=== PATIENT | female | born 1940 | race Caucasian/White ===

== ENCOUNTER → 2024-09-14 06:26 | Outpatient (ROUT) | payer MEDICARE, SELFPAY ==
[2024-09-14 09:00] LABS: INR 1.8 (0.9-1.3); Prothrombin Time 19.6 SECONDS (9.4-12.5)
== END ==
PROVIDERS: Visit Provider Registered Nurse
DX: I27.20 Pulmonary hypertension, unspecified (principal); I10 Essential (primary) hypertension
CPT/HCPCS: 36415; 85610

== ENCOUNTER → 2024-09-21 06:19 | Outpatient (ROUT) | payer MEDICARE, SELFPAY ==
[2024-09-21 08:18] LABS: Add Manual Diff / Slide Review NO; Basophils Absolute Auto 0 /uL (0-100); Basophils Percent Auto 0.5 % (0-2); Eosinophils Absolute Auto 200 /uL (0-450); Eosinophils Percent Auto 1.7 % (2-4); Hematocrit 33.1 % (36-46); Hemoglobin 11.1 g/dL (12.0-16.0); Lymphocytes Absolute Auto 1800 /uL (1100-4500); Mean Corpuscular HGB Conc 33.5 % (30-36); Mean Corpuscular Hemoglobin 28.8 PG (26-34); Mean Corpuscular Volume 85.9 fL (80-100); Monocytes Absolute Auto 700 /uL (0-900); Monocytes Percent Auto 7.8 % (3-14); Neutrophils Absolute Auto 6200 /uL (1500-7000); Platelet Count 604 X10^3/uL (150-400); Red Blood Cell Count 3.86 X10^6/uL (4.0-5.2); Red Cell Distribution Width 14.7 % (11.6-14.8); White Blood Cell Count 8.9 X10^3/uL (4.5-11.0)
[2024-09-21 08:33] LABS: INR 1.8 (0.9-1.3); Prothrombin Time 19.9 SECONDS (9.4-12.5)
[2024-09-21 08:39] LABS: BUN Creatinine Ratio 26.9 (6-22); Blood Urea Nitrogen 14 mg/dL (7-17); Carbon Dioxide 33 mmol/L (22-32); Chloride 95 mmol/L (98-107); Estimated Glomerular Filt Rate > 60 mL/min (>60); Glucose 105 mg/dL (80-110); HEMOLYSIS < 15 (0-50); Magnesium 1.6 mg/dL (1.6-2.3); Potassium 3.2 mmol/L (3.4-5.1); Sodium 135 mmol/L (137-145)
== END ==
PROVIDERS: Visit Provider Registered Nurse
DX: I11.0 Hypertensive heart disease with heart failure (principal); I50.9 Heart failure, unspecified; I48.91 Unspecified atrial fibrillation; D64.9 Anemia, unspecified
CPT/HCPCS: 36415; 80048; 83735; 85025; 85610

== ENCOUNTER → 2024-09-28 06:16 | Outpatient (ROUT) | payer MEDICARE, SELFPAY ==
[2024-09-28 08:06] LABS: INR 1.9 (0.9-1.3); Prothrombin Time 21.3 SECONDS (9.4-12.5)
[2024-09-28 08:12] LABS: Alanine Aminotransferase 20 IU/L (<35); Albumin 3.1 g/dL (3.5-5.0); Alkaline Phosphatase 62 U/L (38-126); Aspartate Aminotransferase 27 IU/L (14-36); BUN Creatinine Ratio 25.9 (6-22); Bilirubin Total 0.4 mg/dL (0.2-1.3); Blood Urea Nitrogen 14 mg/dL (7-17); Carbon Dioxide 31 mmol/L (22-32); Chloride 100 mmol/L (98-107); Estimated Glomerular Filt Rate > 60 mL/min (>60); Globulin 3.1 g/dL (1.7-4.1); Glucose 107 mg/dL (80-110); HEMOLYSIS < 15 (0-50); Magnesium 1.6 mg/dL (1.6-2.3); Potassium 3.2 mmol/L (3.4-5.1); Sodium 135 mmol/L (137-145); Total Protein 6.2 g/dL (6.3-8.2)
== END ==
PROVIDERS: Visit Provider Registered Nurse
DX: I11.0 Hypertensive heart disease with heart failure (principal); I50.9 Heart failure, unspecified; I48.91 Unspecified atrial fibrillation; D64.9 Anemia, unspecified; E87.6 Hypokalemia
CPT/HCPCS: 36415; 80053; 83735; 85610

== ENCOUNTER → 2024-10-19 06:33 | Outpatient (ROUT) | payer MEDICARE, SELFPAY ==
[2024-10-19 08:20] LABS: INR 2.1 (0.9-1.3); Prothrombin Time 23.1 SECONDS (9.4-12.5)
[2024-10-19 08:26] LABS: BUN Creatinine Ratio 26.1 (6-22); Blood Urea Nitrogen 12 mg/dL (7-17); Calcium 8.8 mg/dL (8.4-10.2); Carbon Dioxide 31 mmol/L (22-32); Chloride 97 mmol/L (98-107); Estimated Glomerular Filt Rate > 60 mL/min (>60); Glucose 102 mg/dL (80-110); HEMOLYSIS < 15 (0-50); Magnesium 1.7 mg/dL (1.6-2.3); Sodium 135 mmol/L (137-145)
== END ==
PROVIDERS: Visit Provider Registered Nurse
DX: E87.6 Hypokalemia (principal)
CPT/HCPCS: 36415; 80048; 83735; 85610

== ENCOUNTER → 2024-10-20 14:19 | Outpatient (CLI) | payer MEDICARE, OTHER, SELFPAY ==
--- NOTE | 2024-10-20 14:27 | DI.RAD.S_ITS ---
PROCEDURE: XR SHOULDER LT MIN 2V INDICATIONS: LT SHOULDER PAIN TECHNIQUE: 3 views of the shoulder were acquired. COMPARISON: None. FINDINGS: Bones: No fractures or dislocations. No suspicious bony lesions. Visualized ribs appear intact. Soft tissues: No suspicious soft tissue calcifications. IMPRESSION: No acute bony abnormality. Dictated by: Melvin Vitale M.D. on 10/20/2024 at 21:25 Approved by: Melvin Vitale M.D. on 10/20/2024 at 21:25
--- NOTE | 2024-10-20 14:28 | DI.RAD.S_ITS ---
PROCEDURE: XR WRIST RT MIN 3V INDICATIONS: WRIST PAIN TECHNIQUE: 4 views of the wrist were acquired. COMPARISON: None. FINDINGS: Diffuse osseous demineralization. Chronic-appearing scaphoid waist fracture with proximal pole sclerosis and a widened scapholunate interval up to 6 mm. Mild proximal descent of the capitate. Mild dorsal tilt of the lunate on the lateral view. 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 Mild negative ulnar variance posture. IMPRESSION: 1. 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 2. 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 Dictated by: Christopher Gaitan M.D. on 10/21/2024 at 16:30 Approved by: Christopher Gaitan M.D. on 10/21/2024 at 16:33
== END ==
PROVIDERS: Referring Provider Nurse Practitioner Family; Visit Provider Nurse Practitioner Family
DX: S62.021A Displaced fracture of middle third of navicular [scaphoid] bone of right wrist, initial encounter for closed fracture (principal); M25.531 Pain in right wrist; M25.512 Pain in left shoulder; M18.11 Unilateral primary osteoarthritis of first carpometacarpal joint, right hand; W19.XXXA Unspecified fall, initial encounter
CPT/HCPCS: 73030; 73110

== ENCOUNTER → 2024-11-09 06:31 | Outpatient (ROUT) | payer MEDICARE, SELFPAY ==
[2024-11-09 08:45] LABS: HEMOLYSIS < 15 (0-50); Potassium 3.6 mmol/L (3.4-5.1)
[2024-11-09 08:46] LABS: Prothrombin Time 22.2 SECONDS (9.4-12.5)
== END ==
PROVIDERS: Visit Provider Registered Nurse
DX: E56.1 Deficiency of vitamin K (principal); E87.6 Hypokalemia; I48.91 Unspecified atrial fibrillation
CPT/HCPCS: 36415; 83735; 84132; 85610

== ENCOUNTER → 2024-11-16 08:15 | Outpatient (ROUT) | payer MEDICARE, SELFPAY ==
[2024-11-16 08:30] LABS: Prothrombin Time 22.4 SECONDS (9.4-12.5)
== END ==
PROVIDERS: Visit Provider Registered Nurse
DX: I48.91 Unspecified atrial fibrillation (principal); I50.9 Heart failure, unspecified
CPT/HCPCS: 36415; 85610

== ENCOUNTER → 2024-11-23 06:10 | Outpatient (ROUT) | payer MEDICARE, SELFPAY ==
[2024-11-23 07:53] LABS: Prothrombin Time 22.5 SECONDS (9.4-12.5)
== END ==
PROVIDERS: Visit Provider Registered Nurse
DX: I48.91 Unspecified atrial fibrillation (principal); I50.9 Heart failure, unspecified
CPT/HCPCS: 36415; 85610

== ENCOUNTER 2024-12-03 17:47 | Emergency (ER) | payer MEDICARE, SELFPAY ==
[2024-12-03] VITALS (53 sets, daily range): BP systolic 63–192; BP diastolic 41–145; PULSE 79–142; RESP 15–38; TEMP 37–38; O2SAT 91–98
--- NOTE | 2024-12-03 17:57 | DI.RAD.S_ITS ---
PROCEDURE: XR CHEST 1V INDICATIONS: suspected sepsis TECHNIQUE: One view of the chest was acquired. COMPARISON: None. FINDINGS: Surgical changes and devices: None. Lungs and pleura: Lungs are clear. No pleural effusions or pneumothorax. Mediastinum: Mediastinal contours appear normal. Heart size is normal. Bones and chest wall: No suspicious bony lesions. Overlying soft tissues appear unremarkable. IMPRESSION: No acute cardiopulmonary abnormality is seen. Dictated by: Joe Mendoza M.D. on 12/03/2024 at 19:57 Approved by: Joe Mendoza M.D. on 12/03/2024 at 19:57
[2024-12-03 18:06] LABS: Add Manual Diff / Slide Review NO; Basophils Absolute Auto 100 /uL (0-100); Basophils Percent Auto 1.3 % (0-2); Eosinophils Absolute Auto 100 /uL (0-450); Eosinophils Percent Auto 0.8 % (2-4); Hematocrit 36.5 % (36-46); Hemoglobin 11.9 g/dL (12.0-16.0); Lymphocytes Absolute Auto 2000 /uL (1100-4500); Lymphocytes Percent Auto 18.6 % (25-40); Mean Corpuscular HGB Conc 32.6 % (30-36); Mean Corpuscular Hemoglobin 27.9 PG (26-34); Mean Corpuscular Volume 85.6 fL (80-100); Monocytes Absolute Auto 700 /uL (0-900); Monocytes Percent Auto 6.2 % (3-14); Neutrophils Absolute Auto 7800 /uL (1500-7000); Neutrophils Percent Auto 73.1 % (50-75); Platelet Count 597 X10^3/uL (150-400); Red Blood Cell Count 4.27 X10^6/uL (4.0-5.2); Red Cell Distribution Width 14.8 % (11.6-14.8); White Blood Cell Count 10.7 X10^3/uL (4.5-11.0)
[2024-12-03] MEDS: SODIUM CHLORIDE 0.9% 1,000 ML 1000 ML IV ×2 (18:09→19:19)
--- NOTE | 2024-12-03 18:13 | ED.FEVER ---
HPI - Fever General Chief Complaint: Fever Stated Complaint: Sepsis Time Seen by Provider: 12/03/24 17:59 Source: EMS Mode of arrival: EMS History of Present Illness HPI Narrative: 84-year-old female with history of dementia presents from [facility] for possible infection. History is very limited as EMS reports that staff at the [facility] could not give definitive timeline of events and patient is quite demented. Alleged to have abdominal pain and constipation. Patient noted to be tachycardic and febrile on arrival with Tmax 100.4F with distended abdomen. On arrival patient is pleasantly demented, states that her neck and her shoulders hurt, but otherwise denies complaints or pain. She is alert only to self. Related Data Allergies Allergy/AdvReac Type Severity Reaction Status Date / Time adhesive tape Allergy Verified 12/03/24 18:09 amoxicillin Allergy Verified 12/03/24 18:09 clindamycin Allergy Verified 12/03/24 18:09 lidocaine Allergy Verified 12/03/24 18:09 magnesium Allergy Verified 12/03/24 18:09 NSAIDS (Non-Steroidal Allergy Verified 12/03/24 18:09 Anti-Inflamma petrolatum,white Allergy Verified 12/03/24 18:09 [From Petroleum Jelly] povidone-iodine Allergy Verified 12/03/24 18:09 [From Betadine] Patient History Social History Smoking Status: Unknown if ever smoked Smoking Status: Unknown if ever smoked Exam Initial Vital Signs Initial Vital Signs: Vital Signs Temperature 100.4 F H 12/03/24 17:57 Pulse Rate 128 H 12/03/24 17:57 Respiratory Rate 20 12/03/24 17:57 Blood Pressure 133/103 H 12/03/24 17:57 Pulse Oximetry 91 12/03/24 17:57 Oxygen Delivery Method Room Air 12/03/24 17:57 Const: Awake, alert, debilitated, frail, chronically unwell appearing Cardiac: Tachycardia, regular rhythm RESP: unlabored, clear bilaterally, no wheezing GI: Soft, suprapubic distention, no tenderness to palpation Skin: Warm, Dry, pale, poor skin turgor, stage I pressure ulcer sacrum Neuro: AO x1, CN II-XII grossly intact, moves all extremities Course Orders Ordered: ED Orders 12/03/24 17:50 Complete Blood Count AUTO DIFF Stat Comprehensive Metabolic Panel Stat Lactate (Lactic Acid) Stat Lipase Stat PTT Partial Thromboplastin Pradip Stat Procalcitonin Stat Prothrombin Time INR Stat 12/03/24 17:57 XR chest 1V Stat EKG-12 Lead Stat RT Consult Eval and Treat NOW 12/03/24 18:30 Blood Culture Stat 12/03/24 18:33 Respiratory Panel (Film Array) Stat 12/03/24 20:35 CT abdomen pelvis w con Stat Discontinued Medications Acetaminophen (Acetaminophen Susp 160 Mg/5 Ml Udc) 1,000 mg PO NOW ONE Stop: 12/03/24 18:14 Last Admin: 12/03/24 18:30 Dose: Not Given Documented By: SAMMY Haloperidol (Haloperidol 5 Mg/Ml Vial) 3 mg IV NOW ONE Stop: 12/03/24 18:13 Last Admin: 12/03/24 18:21 Dose: 3 mg Documented By: SAMMY Sodium Chloride (Normal Saline 0.9%) 1,000 mls @ 1,000 mls/hr IV BOLUS ONE Stop: 12/03/24 18:55 Last Infusion: 12/03/24 19:17 Dose: Infused Documented By: Admin: 12/03/24 18:09 Dose: 1,000 mls/hr Documented By: SAMMY Ceftriaxone Sodium 2,000 mg/ (Sodium Chloride) 100 mls @ 200 mls/hr IV NOW ONE Stop: 12/03/24 18:13 Last Infusion: 12/03/24 18:56 Dose: Infused Documented By: Admin: 12/03/24 18:23 Dose: 200 mls/hr Documented By: SAMMY Acetaminophen (Ofirmev) 1,000 mg in 100 mls @ 400 mls/hr IV NOW ONE Stop: 12/03/24 18:33 Last Infusion: 12/03/24 18:57 Dose: Infused Documented By: Admin: 12/03/24 18:24 Dose: 400 mls/hr Documented By: SAMMY Sodium Chloride (Normal Saline 0.9%) 1,000 mls @ 1,000 mls/hr IV BOLUS ONE Stop: 12/03/24 20:17 Last Infusion: 12/03/24 20:12 Dose: Infused Documented By: Admin: 12/03/24 19:19 Dose: 1,000 mls/hr Documented By: SAMMY Sodium Chloride (Normal Saline 0.9%) 1,000 mls @ 150 mls/hr IV CONT [facility] Last Infusion: 12/04/24 00:21 Dose: Infused Documented By: Admin: 12/03/24 20:38 Dose: 150 mls/hr Documented By: SAMMY Lactulose (Lactulose 20 Gm/30 Ml Solution) 20 gm PO NOW ONE Stop: 12/03/24 21:32 Last Admin: 12/03/24 21:38 Dose: 20 gm Documented By: HOMERO Mineral Oil (Mineral Oil 30 Ml Udc) 30 ml PO NOW ONE Stop: 12/03/24 21:32 Last Admin: 12/03/24 22:45 Dose: 30 ml Documented By: HOMERO Mineral Oil (Mineral Oil 1 Each Enema) 1 each RI NOW ONE Stop: 12/03/24 22:31 Last Admin: 12/03/24 23:01 Dose: 1 each Documented By: HOMERO Ondansetron HCl (Ondansetron 4 Mg/2 Ml Inj) 4 mg IV NOW PRN PRN Reason: Nausea And Vomiting Ondansetron HCl (Ondansetron 4 Mg Odt) 4 mg SL NOW PRN PRN Reason: Nausea And Vomiting Sennosides (Sennosides 8.6 Mg Tablet) 17.2 mg PO BEDTIME [facility] Last Admin: 12/03/24 23:27 Dose: 17.2 mg Documented By: HOMERO Vital Signs Vital signs: Vital Signs - 8 hr 12/03/24 17:57 12/03/24 18:00 12/03/24 18:07 Temperature 100.4 F H Pulse Rate 128 H 127 H Respiratory Rate 20 32 H Blood Pressure 133/103 H 174/94 H Pulse Oximetry 91 Oxygen Delivery Method Room Air 12/03/24 18:07 12/03/24 18:30 12/03/24 18:31 Temperature Pulse Rate 123 H 139 H Respiratory Rate 30 H 30 H Blood Pressure 192/145 H Pulse Oximetry Oxygen Delivery Method 12/03/24 18:31 12/03/24 19:00 12/03/24 19:01 Temperature Pulse Rate 142 H 119 H 119 H Respiratory Rate 30 H 30 H 35 H Blood Pressure Pulse Oximetry 96 96 96 Oxygen Delivery Method 12/03/24 19:01 12/03/24 19:05 12/03/24 19:05 Temperature Pulse Rate 118 H Respiratory Rate 31 H Blood Pressure 66/47 L 63/48 L Pulse Oximetry 96 Oxygen Delivery Method 12/03/24 19:06 12/03/24 19:06 12/03/24 19:09 Temperature Pulse Rate 117 H 118 H Respiratory Rate 26 H 31 H Blood Pressure 88/51 L Pulse Oximetry 96 94 Oxygen Delivery Method 12/03/24 19:10 12/03/24 19:10 12/03/24 19:15 Temperature Pulse Rate 119 H Respiratory Rate 32 H Blood Pressure 93/52 L 86/53 L Pulse Oximetry 91 Oxygen Delivery Method 12/03/24 19:15 12/03/24 19:20 12/03/24 19:20 Temperature Pulse Rate 115 H 109 H Respiratory Rate 27 H 28 H Blood Pressure 87/49 L Pulse Oximetry 97 97 Oxygen Delivery Method 12/03/24 19:25 12/03/24 19:25 12/03/24 19:30 Temperature Pulse Rate 107 H 108 H Respiratory Rate 22 25 H Blood Pressure 92/47 L Pulse Oximetry 97 96 Oxygen Delivery Method 12/03/24 19:30 12/03/24 19:36 12/03/24 19:36 Temperature Pulse Rate 104 H Respiratory Rate 23 Blood Pressure 88/46 L 96/52 L Pulse Oximetry 96 Oxygen Delivery Method 12/03/24 19:40 12/03/24 19:40 12/03/24 19:42 Temperature Pulse Rate 104 H Respiratory Rate 31 H Blood Pressure 86/49 L 83/44 L Pulse Oximetry 98 Oxygen Delivery Method 12/03/24 19:42 12/03/24 19:45 12/03/24 19:45 Temperature Pulse Rate 103 H 102 H Respiratory Rate 25 H 27 H Blood Pressure 75/43 L Pulse Oximetry 97 97 Oxygen Delivery Method 12/03/24 19:46 12/03/24 19:46 12/03/24 19:50 Temperature Pulse Rate 102 H Respiratory Rate 31 H Blood Pressure 81/47 L 83/49 L Pulse Oximetry 96 Oxygen Delivery Method 12/03/24 19:50 12/03/24 19:54 12/03/24 19:54 Temperature Pulse Rate 101 H 102 H Respiratory Rate 26 H 32 H Blood Pressure 90/51 L Pulse Oximetry 96 95 Oxygen Delivery Method 12/03/24 19:55 12/03/24 19:55 12/03/24 20:00 Temperature Pulse Rate 102 H Respiratory Rate 35 H Blood Pressure 80/45 L 76/41 L Pulse Oximetry 96 Oxygen Delivery Method 12/03/24 20:00 12/03/24 20:05 12/03/24 20:05 Temperature Pulse Rate 104 H 103 H Respiratory Rate 32 H 38 H Blood Pressure 89/51 L Pulse Oximetry 97 97 Oxygen Delivery Method 12/03/24 20:10 12/03/24 20:10 12/03/24 20:15 Temperature Pulse Rate 103 H Respiratory Rate 35 H Blood Pressure 95/53 L 93/51 L Pulse Oximetry 96 Oxygen Delivery Method 12/03/24 20:15 12/03/24 20:20 12/03/24 20:20 Temperature Pulse Rate 101 H 100 H Respiratory Rate 25 H 36 H Blood Pressure 83/45 L Pulse Oximetry 96 96 Oxygen Delivery Method 12/03/24 20:21 12/03/24 20:21 12/03/24 20:25 Temperature Pulse Rate 100 H 100 H Respiratory Rate 29 H 34 H Blood Pressure 86/51 L Pulse Oximetry 96 96 Oxygen Delivery Method 12/03/24 20:25 12/03/24 20:30 12/03/24 20:30 Temperature Pulse Rate 100 H Respiratory Rate 31 H Blood Pressure 92/52 L 88/49 L Pulse Oximetry 96 Oxygen Delivery Method 12/03/24 20:33 12/03/24 20:33 12/03/24 20:35 Temperature Pulse Rate 96 H Respiratory Rate 30 H Blood Pressure 99/50 L 95/51 L Pulse Oximetry 97 Oxygen Delivery Method 12/03/24 20:35 12/03/24 20:40 12/03/24 20:40 Temperature Pulse Rate 95 H 93 H Respiratory Rate 18 20 Blood Pressure 88/50 L Pulse Oximetry 96 95 Oxygen Delivery Method 12/03/24 20:45 12/03/24 20:45 12/03/24 21:03 Temperature Pulse Rate 92 H 87 Respiratory Rate 19 Blood Pressure 93/50 L Pulse Oximetry 96 96 Oxygen Delivery Method 12/03/24 21:04 12/03/24 21:04 12/03/24 21:05 Temperature Pulse Rate 85 85 Respiratory Rate 16 18 Blood Pressure 100/51 L Pulse Oximetry 97 96 Oxygen Delivery Method 12/03/24 21:05 12/03/24 21:10 12/03/24 21:10 Temperature Pulse Rate 85 Respiratory Rate 18 Blood Pressure 92/55 L 89/54 L Pulse Oximetry 94 Oxygen Delivery Method 12/03/24 21:13 12/03/24 21:15 12/03/24 21:15 Temperature 98.6 F Pulse Rate 84 Respiratory Rate 15 Blood Pressure 90/51 L Pulse Oximetry 95 Oxygen Delivery Method 12/03/24 21:20 12/03/24 21:20 12/03/24 21:25 Temperature Pulse Rate 84 84 Respiratory Rate 16 17 Blood Pressure 88/53 L Pulse Oximetry 95 96 Oxygen Delivery Method 12/03/24 21:25 12/03/24 21:30 12/03/24 21:30 Temperature Pulse Rate 85 Respiratory Rate 19 Blood Pressure 90/53 L 85/52 L Pulse Oximetry 95 Oxygen Delivery Method 12/03/24 21:45 12/03/24 21:45 12/03/24 22:00 Temperature Pulse Rate 88 Respiratory Rate 18 Blood Pressure 92/55 L 94/51 L Pulse Oximetry 92 Oxygen Delivery Method 12/03/24 22:00 12/03/24 22:15 12/03/24 22:15 Temperature Pulse Rate 87 86 Respiratory Rate 35 H 27 H Blood Pressure 93/50 L Pulse Oximetry 95 96 Oxygen Delivery Method 12/03/24 22:30 12/03/24 22:30 12/03/24 22:45 Temperature Pulse Rate 88 Respiratory Rate 35 H Blood Pressure 102/55 L 93/55 L Pulse Oximetry 97 Oxygen Delivery Method 12/03/24 22:45 12/03/24 23:00 12/03/24 23:00 Temperature Pulse Rate 87 85 Respiratory Rate 17 18 Blood Pressure 97/54 L Pulse Oximetry 95 96 Oxygen Delivery Method 12/03/24 23:15 12/03/24 23:15 12/03/24 23:30 Temperature Pulse Rate 86 Respiratory Rate 18 Blood Pressure 101/55 L 99/54 L Pulse Oximetry 95 Oxygen Delivery Method 12/03/24 23:30 12/03/24 23:45 12/03/24 23:45 Temperature Pulse Rate 82 79 Respiratory Rate 22 17 Blood Pressure 95/53 L Pulse Oximetry 95 93 Oxygen Delivery Method 12/04/24 00:00 12/04/24 00:00 Temperature Pulse Rate 80 Respiratory Rate 17 Blood Pressure 102/58 L Pulse Oximetry 94 Oxygen Delivery Method MDM - Fever Lab Data 12/03/24 17:50 12/03/24 17:50 Labs: Lab Results 12/03/24 12/03/24 12/03/24 Range/Units 17:50 18:33 19:44 WBC 10.7 (4.5-11.0) X10^3/uL RBC 4.27 (4.0-5.2) X10^6/uL Hgb 11.9 L (12.0-16.0) g/dL Hct 36.5 (36-46) % MCV 85.6 (80-100) fL MCH 27.9 (26-34) PG MCHC 32.6 (30-36) % RDW 14.8 (11.6-14.8) % Plt Count 597 H (150-400) X10^3/uL Neut % (Auto) 73.1 (50-75) % Lymph % (Auto) 18.6 L (25-40) % [place] % (Auto) 6.2 (3-14) % Eos % (Auto) 0.8 L (2-4) % Baso % (Auto) 1.3 (0-2) % Neut # (Auto) 7800 H (8853-7789) /uL Lymph # (Auto) 2000 (8109-6936) /uL [place] # (Auto) 700 (0-900) /uL Eos # (Auto) 100 (0-450) /uL Baso # (Auto) 100 (0-100) /uL PT 29.7 H (9.4-12.5) SECONDS INR 2.7 H (0.9-1.3) APTT 52 H (25.1-36.5) SECONDS Sodium 139 (137-145) mmol/L Potassium 3.6 (3.4-5.1) mmol/L Chloride 98 (98-107) mmol/L Carbon Dioxide 31 (22-32) mmol/L BUN 20 H (7-17) mg/dL Creatinine 0.78 (0.52-1.04) mg/dL Estimated GFR > 60 (>60) mL/min BUN/Creatinine Ratio 25.6 H (6-22) Glucose 130 H (80-110) mg/dL Lactate 2.6 H 1.5 (0.7-2.1) mmol/L Calcium 8.6 (8.4-10.2) mg/dL Total Bilirubin 0.4 (0.2-1.3) mg/dL AST 31 (14-36) IU/L ALT 22 (<35) IU/L Alkaline Phosphatase 93 (38-126) U/L Total Protein 8.3 H (6.3-8.2) g/dL Albumin 3.8 (3.5-5.0) g/dL Globulin 4.5 H (1.7-4.1) g/dL Albumin/Globulin Ratio 0.8 L (1.0-2.8) Lipase 109 (23-300) U/L Procalcitonin 0.054 (<0.5) ng/mL Chlamy pneumoniae PCR Not detected (Not Detect) Adenovirus (PCR) Not detected (Not Detect) B. pertussis DNA (PCR) Not detected (Not Detect) B.parapertussis DNA PCR Not detected (Not Detecte) Coronavirus OC43 (PCR) Not detected (Not Detect) Coronavirus HKU1 (PCR) Not detected (Not Detect) Coronavirus 229E (PCR) Not detected (Not Detect) SARS-CoV-2 (PCR) Not detected (Not Detecte) Coronavirus NL63 (PCR) Not detected (Not Detect) Human Metapneumovir PCR Not detected (Not Detect) Influenza Type A (PCR) Not detected (Not Detect) Influenza Type B (PCR) Not detected (Not Detect) M. pneumoniae (PCR) Not detected (Not Detect) Parainfluenza 1 (PCR) Not detected (Not Detect) Parainfluenza 2 (PCR) Not detected (Not Detect) Parainfluenza 3 (PCR) Not detected (Not Detect) Parainfluenza 4 (PCR) Not detected (Not Detect) RSV (PCR) Not detected (Not Detect) Entero/Rhino (PCR) Not detected (Not Detect) Urine Dip Bedside Urine Glucose Negative Bedside Urine Bilirubin - Negative Bedside Urine Ketone - Negative Urine Specific [place] 1.015 Bedside Urine Occult Blood - Negative Bedside Urine pH 6.0 Bedside Urine Protein - Negative Bedside Urine Urobilinogen - Negative Bedside Urine Nitrite - Negative Bedside Urine Leukocytes - Negative Esterase MDM Narrative Medical decision making narrative: Patient presenting with possible abdominal pain, possible altered mental status. Oral temperature 100.4 on arrival. Patient noted to have a distended lower abdomen, however she denies abdominal pain in abdomen is otherwise soft with no reproducible tenderness to palpation. Nursing staff ordered to do bladder scan which showed greater than 999 cc of fluid. Elkins placed with over 1300 cc of urine drained from the bladder. Sepsis bundle ordered, no obvious source of infection based on exam and presentation. Patient is quite demented, she initially refused chest x ray not understanding why it was ordered. After small amount of haldol patient cooperative with XR. Empiric Rocephin ordered for coverage. Tylenol ordered. After removal of urine from the bladder the patient's blood pressure dropped on the monitor. I was called to bedside, however the patient maintained her mentation and she had strong peripheral radial pulses. These findings are incongruent with the reported blood pressure readings. Pending laboratory work and imaging. Laboratory work shows WBC count 10.7, hemoglobin 11.9, platelet count 597, sodium 139, potassium 3.6, creatinine 0.78, glucose 130, initial lactic acid 2.6, repeat 1.5. Normal liver enzymes. Procalcitonin 0.054. CT of the abdomen and pelvis shows dependent atelectasis in the bases, large stool burden, no other acute findings. POC urine negative for signs of infection. Chest x-ray unremarkable. Respiratory panel negative. Blood pressure readings continue to be low for a while, but improved after fluids. Throughout the entire time she continued to have the same level of mentation is when she arrived and with strong radial pulses. She continued to deny complaint throughout her entire ER stay. With otherwise unremarkable labs, negative procalcitonin, negative urine, and no source of infection seen on chest x-ray, CT, physical exam no indication for admission at this time. Elkins will be kept in place. She was sent back to [facility] with instructions to follow up with Urology. Blood cultures are pending. Patient is sent via [facility] back to her living facility. Discharge Plan Departure Patient Disposition: Home Clinical Impression: Acute urinary retention Instructions: DI for Urinary Retention in Women Activity Restrictions/Additional Instructions: The workup for Ms. Rincon today did not reveal any obvious bacterial source of infection. The urine did not show any signs of infection, there was no pneumonia, and her respiratory panel was negative for multiple pathogens. There was a large volume of urine retained in her bladder. The Elkins catheter should remain in place until she follows up with Urology. A phone number referral has been provided. Referrals: Jarrell Noe DO [Physician] - Stand Alone Forms: Patient Portal/API/Survey
[2024-12-03 18:16] LABS: INR 2.7 (0.9-1.3); Prothrombin Time 29.7 SECONDS (9.4-12.5)
[2024-12-03 18:19] LABS: PTT Partial Thromboplastin Tim 52 SECONDS (25.1-36.5)
[2024-12-03 18:20] LABS: Alanine Aminotransferase 22 IU/L (<35); Albumin 3.8 g/dL (3.5-5.0); Albumin Globulin Ratio 0.8 (1.0-2.8); Alkaline Phosphatase 93 U/L (38-126); Aspartate Aminotransferase 31 IU/L (14-36); BUN Creatinine Ratio 25.6 (6-22); Bilirubin Total 0.4 mg/dL (0.2-1.3); Blood Urea Nitrogen 20 mg/dL (7-17); Calcium 8.6 mg/dL (8.4-10.2); Carbon Dioxide 31 mmol/L (22-32); Chloride 98 mmol/L (98-107); Estimated Glomerular Filt Rate > 60 mL/min (>60); Globulin 4.5 g/dL (1.7-4.1); Glucose 130 mg/dL (80-110); HEMOLYSIS < 15 (0-50); Lactate (Lactic Acid) 2.6 mmol/L (0.7-2.1); Lipase 109 U/L (23-300); Potassium 3.6 mmol/L (3.4-5.1); Sodium 139 mmol/L (137-145); Total Protein 8.3 g/dL (6.3-8.2)
[2024-12-03] MEDS: HALOPERIDOL 5 MG/ML VIAL 3 MG IV (18:21)
[2024-12-03] MEDS: cefTRIAXone 2,000 MG in SODIUM CHLORIDE 0.9% 100 ML 200 MG IV (18:23)
[2024-12-03] MEDS: ACETAMINOPHEN IV 1,000 MG/100 ML VIAL 400 MG IV (18:24)
[2024-12-03 18:37] LABS: Procalcitonin 0.054 ng/mL (<0.5)
--- NOTE | 2024-12-03 19:14 | PC.NURSE ---
patient had 1350 emptied from her bladder. Her BP dropped but was mentating and talking to the nurse and the provider who responded at bedside. an additional bag of fluids was ordered. BP improved shortly after initial episode.
[2024-12-03 19:23] LABS: Adenovirus Not Detected (Not Detect); B. parapertussis Not Detected (Not Detecte); Bordetella pertussis Not Detected (Not Detect); Chlamydophila pneumoniae Not Detected (Not Detect); Coronavirus 229E Not Detected (Not Detect); Coronavirus HKU1 Not Detected (Not Detect); Coronavirus NL 63 Not Detected (Not Detect); Coronavirus OC43 Not Detected (Not Detect); Human Metapneumovirus Not Detected (Not Detect); Human Rhinovirus/Enterovirus Not Detected (Not Detect); Influenza A Not Detected (Not Detect); Influenza B Not Detected (Not Detect); Mycoplasma pneumoniae Not Detected (Not Detect); Parainfluenza Virus 1 Not Detected (Not Detect); Parainfluenza Virus 2 Not Detected (Not Detect); Parainfluenza Virus 3 Not Detected (Not Detect); Parainfluenza Virus 4 Not Detected (Not Detect); Respiratory Syncytial Virus Not Detected (Not Detect); SARS- CoV-2 Not Detected (Not Detecte)
--- NOTE | 2024-12-03 19:23 | EKG_ITS ---
[place] [address] [place] [id number] Test Date: 2024-12-03 Pat Name: Faith Rincon Department: [facility] Room: Gender: Female [employer]: MALU : 1940 Requested By: Order Number: [id number] Reading MD: Kody Abraham Measurements Intervals [place] Rate: 108 P: 52 AL: 188 QRS: -36 QRSD: 88 T: 29 QT: 332 QTc: 444 Interpretive Statements Sinus tachycardia Left axis deviation Low voltage QRS Electronically Signed On 12-07-2024 23:43:08 PST by Kody Abraham
[2024-12-03 19:36] LABS: Reflexed Lactate in 2 Hours Y
--- NOTE | 2024-12-03 19:58 | PC.NURSE ---
the patient's BP on the monitor is low. provider notified and reported to bedside. The patient's mentation is baseline for her since she arrived. her peripheral pulses are strong and bounding and the patient is alert. Will continue to monitor.
[2024-12-03 20:00] LABS: Lactate 2HR (Lactic Acid Rflx) 1.5 mmol/L (0.7-2.1)
--- NOTE | 2024-12-03 20:35 | DI.CT.S_ITS ---
PROCEDURE: CT ABDOMEN PELVIS W CON INDICATIONS: abd distension, fever TECHNIQUE: After the administration of intravenous contrast, axial sections acquired from the lung bases to the pubic symphysis. Coronal and sagittal reformats were performed. For radiation dose reduction, the following was used: automated exposure control, adjustment of mA and/or kV according to patient size. COMPARISON: None. FINDINGS: Image quality: Diagnostic. Lower Chest: Dependent atelectasis can be seen. Moderate coronary artery calcification ABDOMEN: Liver: No solid mass. Gallbladder: Removed. Biliary ducts: No biliary dilation. Pancreas: No ductal dilation. Spleen: Size is within normal limits. Adrenal Glands: No adrenal nodules. Kidneys and Ureters: There is moderate bilateral hydronephrosis. No solid mass. No complex renal cystic lesion which requires follow up. Stomach and Bowel: Prominent abnormal stool can be seen the rectal vault, with the rectal vault measuring 10.3 cm transversely. There is a [id number] volume of stool seen within the colon more proximally. Colonic diverticulosis is seen, without findings of active diverticulitis. Within the sigmoid colon, there is focal wall thickening seen, as on series 6, image 32. No dilated loops of small bowel are seen. A normal appendix is noted. Peritoneum: No abnormal intraperitoneal fluid. No free air. Ventral Wall: No significant ventral hernia. Abdominal Nodes: No retroperitoneal or mesenteric adenopathy by size criteria. Vessels: Aorta and inferior vena cava are normal in size. PELVIS: Pelvic Organs: Unremarkable. Bladder: A Elkins catheter is seen, which decompresses the bladder. Pelvic Nodes: No enlarged lymph nodes. Miscellaneous: No inguinal hernias are seen. Bones: No aggressive osseous abnormality. S-shaped scoliotic curvature is seen. Generalized degenerative changes are seen. Right hip arthroplasty hardware is seen. IMPRESSION: Prominent abnormal stool seen at the rectal vault, which is consistent with constipation. More proximally within the colon, no jacqueline obstruction can be seen, as there is a [id number] volume of stool seen. Focal wall thickening is seen within the sigmoid colon, which is attributed to focal inflammatory change, yet unlikely from diverticulitis. Neoplasm is considered to be less likely based upon the imaging appearance. When clinically appropriate (following adequate treatment of the patient's current clinical episode) a colonoscopy is recommended for further evaluation for a potential underlying mass (if not already recently done). Moderate bilateral hydronephrosis is seen, which is likely secondary to mass effect from the rectum upon the distal ureters. Additional findings: Moderate coronary artery calcification Cholecystectomy S shaped scoliosis Generalized bony degenerative change Normal appendix Elkins catheter Right hip arthroplasty hardware Dictated by: Dwaine Herndon M.D. on 12/03/2024 at 20:30 Approved by: Dwaine Herndon M.D. on 12/03/2024 at 20:35
[2024-12-03] MEDS: SODIUM CHLORIDE 0.9% 1,000 ML 150 ML IV (20:38)
--- NOTE | 2024-12-03 20:39 | PC.NURSE ---
patient has pressure ulcer on her coccyx. in between stage on and 2. skin just broken open. approx 2 cm abrasion not yet deep through epidermis into dermal layer. island dressing applied. patient has small BM. stool was soft and brown.
--- NOTE | 2024-12-03 20:53 | PC.NURSE ---
patient continued to mentate at baseline and had strong pulses despite the patients low BP readings
[2024-12-03] MEDS: LACTULOSE 20 GM/30 ML SOLUTION PO (21:38)
[2024-12-03] MEDS: MINERAL OIL 30 ML UDC PO (22:45)
[2024-12-03] MEDS: MINERAL OIL 1 EACH ENEMA PR (23:01)
[2024-12-03] MEDS: SENNOSIDES 8.6 MG TABLET 17.2 MG PO (23:27)
[2024-12-04] VITALS: BP 102/58; PULSE 80; RESP 17; O2SAT 94
== END 2024-12-04 00:21 | disposition home or self-care (01) ==
PROVIDERS: Student in an Organized Health Care Education/Training Program; Emergency Provider Emergency Medicine
DX: R33.8 Other retention of urine (principal); R10.9 Unspecified abdominal pain; K59.00 Constipation, unspecified; R00.0 Tachycardia, unspecified
CPT/HCPCS: 36415; 71045; 74177; 80053; 81003; 83605; 83690; 84145; 85025; 85610; 85730; 87040; 87633; 93005; 96361; 96365; 96368; 96375; 99285; A9270; J0134; J0696; J1630; Q9967

== ENCOUNTER 2024-12-04 17:03 | Emergency (ER) | payer MEDICARE, OTHER, SELFPAY ==
[2024-12-04 17:15] VITALS: BP 121/56; PULSE 77; RESP 18; TEMP 37.1; O2SAT 93
[2024-12-04 17:43] LABS: Add Manual Diff / Slide Review NO; Basophils Absolute Auto 100 /uL (0-100); Basophils Percent Auto 0.8 % (0-2); Eosinophils Absolute Auto 200 /uL (0-450); Eosinophils Percent Auto 2.2 % (2-4); Hemoglobin 9.9 g/dL (12.0-16.0); Lymphocytes Absolute Auto 2100 /uL (1100-4500); Lymphocytes Percent Auto 23.7 % (25-40); Mean Corpuscular Hemoglobin 28.4 PG (26-34); Mean Corpuscular Volume 86.1 fL (80-100); Monocytes Absolute Auto 600 /uL (0-900); Monocytes Percent Auto 7.3 % (3-14); Neutrophils Absolute Auto 5800 /uL (1500-7000); Platelet Count 455 X10^3/uL (150-400); Red Blood Cell Count 3.48 X10^6/uL (4.0-5.2); Red Cell Distribution Width 14.7 % (11.6-14.8); White Blood Cell Count 8.8 X10^3/uL (4.5-11.0)
[2024-12-04 17:49] LABS: Appearance Urine UA CLEAR; Bilirubin Urine UA NEGATIVE (NEGATIVE); Color Urine UA YELLOW; Glucose Urine UA NEGATIVE (Negative); Ketones Urine UA NEGATIVE (NEGATIVE); Leukocyte Esterase Urine UA TRACE (NEGATIVE); Nitrite Urine UA NEGATIVE (Negative); Occult Blood Urine UA TRACE-INTACT (Negative); Protein Urine UA NEGATIVE (Negative); Urobilinogen Urine UA 0.2 E.U./dL (0.2)
[2024-12-04 17:53] LABS: pH Urine UA 6.5 (4.5-8.0)
[2024-12-04 17:53] LABS: Lactate (Lactic Acid) 0.9 mmol/L (0.7-2.1)
[2024-12-04 17:54] LABS: Alanine Aminotransferase 12 IU/L (<35); Albumin Globulin Ratio 0.8 (1.0-2.8); Alkaline Phosphatase 73 U/L (38-126); Aspartate Aminotransferase 23 IU/L (14-36); BUN Creatinine Ratio 22.6 (6-22); Bilirubin Total 0.3 mg/dL (0.2-1.3); Blood Urea Nitrogen 12 mg/dL (7-17); Calcium 8.3 mg/dL (8.4-10.2); Carbon Dioxide 28 mmol/L (22-32); Chloride 105 mmol/L (98-107); Estimated Glomerular Filt Rate > 60 mL/min (>60); Globulin 3.8 g/dL (1.7-4.1); Glucose 95 mg/dL (80-110); HEMOLYSIS 15 (0-50); Potassium 2.8 mmol/L (3.4-5.1); Sodium 138 mmol/L (137-145); Total Protein 6.8 g/dL (6.3-8.2)
[2024-12-04 18:02] LABS: Bacteria Urine Moderate (10-30); Culture Indicated Urine Specimen Cultured; RBC Urine 0-1/HPF (0-5/HPF); Squamous Epithelial Cell Urine 0-1 /HPF (0-5/HPF); Transitional Epi Cells Urine 0-1/HPF (0-5/HPF); Urine Volume 10mL (spun); WBC Urine 1-5/HPF (0-5/HPF)
[2024-12-04 18:10] LABS: Procalcitonin 0.417 ng/mL (<0.5)
--- NOTE | 2024-12-04 18:21 | ED.RECABL ---
HPI - Recheck/Abnormal Lab/Rx General Chief Complaint: Recheck/Abnormal Lab/Rx Stated Complaint: + blood cultures Time Seen by Provider: 12/04/24 17:04 History of Present Illness HPI narrative: 84-year-old female with history of dementia presents for abnormal lab results. Patient was seen yesterday for abdominal distention and fever. I evaluated the patient and at that time she had urinary retention and constipation. A Elkins catheter was placed that showed clear yellow urine and she was given multiple laxatives for constipation. No obvious source of fever or infection found and patient was discharged back to her assisted living facility. Today a call was made to [facility] stating that the patient had positive blood cultures and she was sent back to the ER for evaluation. On my evaluation patient was pleasantly demented. She denies complaints. She states that she does not know why she is in the emergency department. Related Data Previous Rx's Medication Instructions Recorded cefpodoxime 200 mg tablet 200 mg PO Q12H #20 tabs 12/04/24 Allergies Allergy/AdvReac Type Severity Reaction Status Date / Time adhesive tape Allergy Verified 12/03/24 18:09 amoxicillin Allergy Verified 12/03/24 18:09 clindamycin Allergy Verified 12/03/24 18:09 lidocaine Allergy Verified 12/03/24 18:09 magnesium Allergy Verified 12/03/24 18:09 NSAIDS (Non-Steroidal Allergy Verified 12/03/24 18:09 Anti-Inflamma petrolatum,white Allergy Verified 12/03/24 18:09 [From Petroleum Jelly] povidone-iodine Allergy Verified 12/03/24 18:09 [From Betadine] Patient History Social History Smoking Status: Unknown if ever smoked Smoking Status: Unknown if ever smoked Exam Initial Vital Signs Initial Vital Signs: Vital Signs Temperature 98.8 F 12/04/24 17:15 Pulse Rate 77 12/04/24 17:15 Respiratory Rate 18 12/04/24 17:15 Blood Pressure 121/56 L 12/04/24 17:15 Pulse Oximetry 93 12/04/24 17:15 Oxygen Delivery Method Room Air 12/04/24 17:15 Const: Awake, alert, frail, appears chronically unwell Cardiac: regular rate, regular rhythm RESP: unlabored, clear bilaterally, no wheezing GI: Soft, nontender, nondistended : Elkins in place draining clear yellow urine MSK: No edema, full range of motion, pulses equal Skin: Warm, Dry, intact, no rashes Neuro: AO x1, CN II-XII grossly intact, moves all extremities Course Orders Ordered: ED Orders 12/04/24 17:30 Complete Blood Count AUTO DIFF Stat Comprehensive Metabolic Panel Stat Lactate (Lactic Acid) Stat Procalcitonin Stat 12/04/24 17:40 Urinalysis and Microscopic Stat Urine Culture Stat 12/04/24 17:50 Blood Culture Stat Discontinued Medications Ceftriaxone Sodium 2,000 mg/ (Sodium Chloride) 100 mls @ 200 mls/hr IV NOW ONE Stop: 12/04/24 17:07 Last Infusion: 12/04/24 18:56 Dose: Infused Documented By: Admin: 12/04/24 18:33 Dose: 200 mls/hr Documented By: TYRONE Vancomycin HCl (Vancomycin) 1,250 mg in 250 mls @ 250 mls/hr IV NOW ONE Stop: 12/04/24 18:05 Last Infusion: 12/04/24 19:51 Dose: Infused Documented By: Admin: 12/04/24 18:55 Dose: 250 mls/hr Documented By: TYRONE Potassium Chloride (Potassium Chloride 20 Meq Tab) 60 meq PO NOW ONE Stop: 12/04/24 19:17 Last Admin: 12/04/24 19:29 Dose: 60 meq Documented By: SAMMY Vital Signs Vital signs: Vital Signs - 8 hr 12/04/24 18:55 12/04/24 19:00 12/04/24 20:53 Pulse Rate 73 72 63 Respiratory Rate 16 Blood Pressure 105/59 L 104/59 L 104/66 Pulse Oximetry 96 96 98 Oxygen Delivery Method Room Air Room Air Room Air MDM - Recheck/Abnormal Lab/Rx Lab Data 12/04/24 17:30 12/04/24 17:30 Labs: Lab Results 12/04/24 12/04/24 Range/Units 17:30 17:40 WBC 8.8 (4.5-11.0) X10^3/uL RBC 3.48 L (4.0-5.2) X10^6/uL Hgb 9.9 L (12.0-16.0) g/dL Hct 30.0 L (36-46) % MCV 86.1 (80-100) fL MCH 28.4 (26-34) PG MCHC 33.0 (30-36) % RDW 14.7 (11.6-14.8) % Plt Count 455 H (150-400) X10^3/uL Neut % (Auto) 66.0 (50-75) % Lymph % (Auto) 23.7 L (25-40) % [place] % (Auto) 7.3 (3-14) % Eos % (Auto) 2.2 (2-4) % Baso % (Auto) 0.8 (0-2) % Neut # (Auto) 5800 (1778-6365) /uL Lymph # (Auto) 2100 (5975-2453) /uL [place] # (Auto) 600 (0-900) /uL Eos # (Auto) 200 (0-450) /uL Baso # (Auto) 100 (0-100) /uL Sodium 138 (137-145) mmol/L Potassium 2.8 L (3.4-5.1) mmol/L Chloride 105 (98-107) mmol/L Carbon Dioxide 28 (22-32) mmol/L BUN 12 (7-17) mg/dL Creatinine 0.53 (0.52-1.04) mg/dL Estimated GFR > 60 (>60) mL/min BUN/Creatinine Ratio 22.6 H (6-22) Glucose 95 (80-110) mg/dL Lactate 0.9 (0.7-2.1) mmol/L Calcium 8.3 L (8.4-10.2) mg/dL Total Bilirubin 0.3 (0.2-1.3) mg/dL AST 23 (14-36) IU/L ALT 12 (<35) IU/L Alkaline Phosphatase 73 (38-126) U/L Total Protein 6.8 (6.3-8.2) g/dL Albumin 3.0 L (3.5-5.0) g/dL Globulin 3.8 (1.7-4.1) g/dL Albumin/Globulin Ratio 0.8 L (1.0-2.8) Procalcitonin 0.417 (<0.5) ng/mL Urine Color Yellow Urine Appearance Clear Urine pH 6.5 (4.5-8.0) Ur Specific [place] 1.010 (1.000-1.035) Urine Protein Negative (Negative) Urine Glucose (UA) Negative (Negative) g/dL Urine Ketones Negative (NEGATIVE) Urine Occult Blood Trace-intact (Negative) Urine Nitrate Negative (Negative) Urine Bilirubin Negative (NEGATIVE) Urine Urobilinogen 0.2 (0.2) E.U./dL Ur Leukocyte Esterase Trace H (NEGATIVE) Urine RBC 0-1/hpf (0-5/HPF) Urine WBC 1-5/hpf (0-5/HPF) Ur Squamous Epith Cells 0-1 /hpf (0-5/HPF) Ur Transition Epith Cell 0-1/hpf (0-5/HPF) Urine Bacteria Moderate (10-30) H (None) Ur Culture Indicated? Specimen cultured Vol Urine Centrifuged 10ml (spun) MDM Narrative Medical decision making narrative: Well-appearing patient with positive blood cultures. Microbiology review shows once it of cultures positive for Gram-positive cocci. Possibly contaminant. Repeat labs and blood cultures ordered. Daytime physician ordered empiric Rocephin and vancomycin out of precaution. Patient actually appears even better than she did yesterday and has no complaints. Vital signs stable. Abdomen soft, nontender. Clear yellow urine in the Elkins bag. Labs show WBC count 8.8, hemoglobin 9.9, platelet count 455, sodium 138, potassium 2.8, creatinine 0.53, lactic acid 0.9, procalcitonin 0.417. Urinalysis now has trace leukocyte esterase and moderate bacteria. This is most likely secondary to presence of Elkins catheter now, however since patient had Gram-positive cocci in her bloodstream empiric treatment of cefpodoxime sent to pharmacy of choice. Patient has already received 2 doses of Rocephin in the last 48 hours as well as 1 dose of vancomycin. Sent back to facility in stable condition. Discharge Plan Departure Patient Disposition: Home Clinical Impression: Blood bacterial culture positive Instructions: Blood Culture Activity Restrictions/Additional Instructions: Laboratory work today is overall stable compared to yesterday. There are no signs of sepsis on exam. Repeat blood cultures has been drawn. There are bacteria present in the urine today, however this may be because the urine is from a Elkins catheter. Prophylactic antibiotics has been sent to your pharmacy. Take all of the medications as prescribed. Prescriptions: New cefpodoxime 200 mg tablet 200 mg PO Q12H Qty: 20 0RF Rx Instructions: must administer with a meal/food Referrals: Miscellaneous,Doctor, MD [Primary Care Provider] - Stand Alone Forms: Patient Portal/API/Survey
--- NOTE | 2024-12-04 18:27 | PC.NURSE ---
This RNs first interaction with patient. Patient was in the [facility]-Bed before room 6.
[2024-12-04] MEDS: cefTRIAXone 2,000 MG in SODIUM CHLORIDE 0.9% 100 ML 200 MG IV (18:33)
[2024-12-04 18:55] VITALS: BP 105/59; PULSE 73; O2SAT 96
[2024-12-04] MEDS: VANCOMYCIN 1,250 MG/250 ML PIGGYBACK 250 MG IV (18:55)
[2024-12-04 19:00] VITALS: BP 104/59; PULSE 72; O2SAT 96
[2024-12-04] MEDS: POTASSIUM CHLORIDE 20 MEQ TAB 60 MEQ PO (19:29)
[2024-12-04 20:53] VITALS: BP 104/66; PULSE 63; RESP 16; O2SAT 98
== END 2024-12-04 20:53 | disposition home or self-care (01) ==
PROVIDERS: Emergency Medicine; Emergency Provider Emergency Medicine
DX: R78.81 Bacteremia (principal); F03.90 Unspecified dementia, unspecified severity, without behavioral disturbance, psychotic disturbance, mood disturbance, and anxiety
CPT/HCPCS: 36415; 80053; 81001; 83605; 84145; 85025; 87040; 87086; 96365; 96367; 99284; J0696

== ENCOUNTER → 2024-12-07 06:10 | Outpatient (ROUT) | payer MEDICARE, SELFPAY ==
[2024-12-07 08:20] LABS: INR 4.5 (0.9-1.3); Prothrombin Time 48.7 SECONDS (9.4-12.5)
== END ==
PROVIDERS: Visit Provider Registered Nurse
DX: I48.91 Unspecified atrial fibrillation (principal); I50.42 Chronic combined systolic (congestive) and diastolic (congestive) heart failure; I11.0 Hypertensive heart disease with heart failure
CPT/HCPCS: 36415; 85610

== ENCOUNTER 2024-12-08 10:14 | Emergency (ER) | payer MEDICARE, OTHER, SELFPAY ==
--- NOTE | 2024-12-08 10:13 | ED.GENADULT ---
HPI - General Adult General Chief complaint: Recheck/Abnormal Lab/Rx Stated complaint: Catheter leaking Time Seen by Provider: 12/08/24 10:14 Source: patient, RN notes reviewed and old records reviewed Mode of arrival: EMS Limitations: no limitations History of Present Illness HPI narrative: 84-year-old female history of dementia was seen here on 12/03/2024 found to have urinary retention had a Elkins catheter placed with a actually called back on 12/04/2024 had positive blood culture had repeat labs and repeat cultures at that time and was discharged back to her facility and started on cefpodoxime. Patient arrives today her catheter has been draining urine but she was also had urinary leakage around it. Patient herself has no other complaints. She denies fevers or chills no chest pain or shortness of breath denies any abdominal back or flank pain. She does note her brief has been wet. Per EMS report she was gone through several wet briefs over the last 12 hours despite a draining catheter. Patient isn't where the catheter is new. Per EMS there were no other concerns from the facility as well. Related Data Previous Rx's Medication Instructions Recorded cefpodoxime 200 mg tablet 200 mg PO Q12H #20 tabs 12/04/24 Allergies Allergy/AdvReac Type Severity Reaction Status Date / Time adhesive tape Allergy Verified 12/03/24 18:09 amoxicillin Allergy Verified 12/03/24 18:09 clindamycin Allergy Verified 12/03/24 18:09 lidocaine Allergy Verified 12/03/24 18:09 magnesium Allergy Verified 12/03/24 18:09 NSAIDS (Non-Steroidal Allergy Verified 12/03/24 18:09 Anti-Inflamma petrolatum,white Allergy Verified 12/03/24 18:09 [From Petroleum Jelly] povidone-iodine Allergy Verified 12/03/24 18:09 [From Betadine] Review of Systems Review of Systems ROS Unobtainable: All systems reviewed & are unremarkable except as noted in HPI and below Patient History Social History Smoking Status: Unknown if ever smoked Exam Narrative Exam Narrative: GENERAL: Alert and oriented self and location, mild distress. HEENT: Head normocephalic, atraumatic, EOMI, pupils reactive, face symmetric, moist mucous membranes NECK: Supple, full range of motion CARDIOVASCULAR: Regular rate and rhythm without murmurs, rubs or gallops. RESPIRATORY: Breath sounds equal bilaterally, no wheezes rales or rhonchi. ABDOMEN: Soft, nontender. Normoactive bowel sounds all 4 quadrants. No guarding or rebound, rigidity, no mass : No CVA tenderness, patient has Elkins catheter appears in place has transparent yellow urine without any sediment in the bag unclear when it was last drained but there is clear urine in the catheter tubing. Patient's brief is wet on the inside. There is some slight erythema in the vaginal area but no excoriation or skin breakdown appreciated. EXTREMITIES: Normal range of motion, no clubbing or edema. Neurovascularly intact NEUROLOGICAL: Cranial nerves II through XII grossly intact. Normal movement bilateral upper extremities. SKIN: Warm, dry, no petechiae. No other rashes or skin changes noted. Initial Vital Signs Initial Vital Signs: Vital Signs Temperature 97.2 F L 12/08/24 10:17 Pulse Rate 61 12/08/24 10:17 Respiratory Rate 20 12/08/24 10:17 Blood Pressure 118/56 L 12/08/24 10:17 Pulse Oximetry 99 12/08/24 10:17 Oxygen Delivery Method Room Air 12/08/24 10:17 Course Orders Ordered: Discontinued Medications Bacitracin (Bacitracin Oint 0.9 Gm Pckt) 1 applic TOP NOW ONE Stop: 12/08/24 11:56 Last Admin: 12/08/24 11:59 Dose: 1 applic Documented By: SAMMY Vital Signs Vital signs: Vital Signs - 8 hr 12/08/24 12:29 12/08/24 14:32 12/08/24 14:51 Temperature 98 F Pulse Rate 71 75 70 Respiratory Rate 14 18 18 Blood Pressure 103/59 L 149/57 H 145/75 H Pulse Oximetry 94 96 95 Oxygen Delivery Method Room Air Room Air Room Air Medical Decision Making MDM Narrative Medical decision making narrative: Reviewed patient's last lab she had repeat blood cultures drawn as she had 2 of 3 positive blood cultures was positive for Staphylococcus epidermidis anaerobic bottle only and Staphylococcus warneri in aerobic bottle only, thus far 2nd blood culture from 12/03/2024 has been negative and repeat blood cultures from 12/04/2024 both show no growth after 72 hours. Has a urine culture from 12/04/2024 which was also shows no growth. Patient appears to be having malfunction with her Elkins catheter. She was otherwise well-appearing. Patient was observed her about 2 hours has not had any additional drainage from around her catheter appears to be in place and draining appropriately without any leakage. Does have little bit of a wound and some skin breakdown likely from having wet brief plan for topical barrier ointment and included contact to follow up with wound care for the facility. Discharge Plan Departure Patient Disposition: Home Clinical Impression: Malfunction of Elkins catheter Instructions: How to Care for Your Elkins Catheter -- Female Activity Restrictions/Additional Instructions: Your catheter was adjusted and appears to be draining properly without any leakage at this time. You do have a little bit of a wound please follow up with your physician and have this watched closely. Apply topical barrier ointment to the affected area and I would recommend follow up with the wound care. Please return if you have any new problems, recurrent drainage or leakage, fevers, new abdominal back or flank pain any vomiting, changes to mentation, if you are catheter is not draining or appears blocked or other new or concerning changes. Prescriptions: No Action cefpodoxime 200 mg tablet 200 mg PO Q12H Qty: 20 0RF Rx Instructions: must administer with a meal/food Referrals: Zachariah Kessler MD [Physician] - Stand Alone Forms: Patient Portal/API/Survey
[2024-12-08 10:17] VITALS: BP 118/56; PULSE 61; RESP 20; TEMP 36.2; O2SAT 99
--- NOTE | 2024-12-08 11:17 | PC.NURSE ---
Pt seen in ER x1 week ago and feliciano cath placed. Arrived to ED via EMS because cath leaking and brief wet. Cath flushed and no clots observed. Urine clear and feliciano patent and draining. Stage 2 pressure ucler observed on coccyx. Original allyven dressing that was placed by ED RN at previous visit still in place and soiled. Moderate amount of sticky BM in brief. pt c/o 4/10 pain on coccyx. Repositioned to her right side for comfort. Brief and dressing changed.
[2024-12-08] MEDS: BACITRACIN OINT 0.9 GM PCKT 1 APPLIC TOP (11:59)
--- NOTE | 2024-12-08 12:01 | PC.NURSE ---
bandaid and bacitracin applied to her left inner thigh over bleeding and swollen hair follicle.
[2024-12-08 12:29] VITALS: BP 103/59; PULSE 71; RESP 14; O2SAT 94
--- NOTE | 2024-12-08 14:01 | PC.NURSE ---
1355 Attempted to call [facility] to come lease picker patient. No Answer. Left message.
[2024-12-08 14:32] VITALS: BP 149/57; PULSE 75; RESP 18; TEMP 36.6; O2SAT 96
[2024-12-08 14:51] VITALS: BP 145/75; PULSE 70; RESP 18; O2SAT 95
== END 2024-12-08 14:54 | disposition home or self-care (01) ==
PROVIDERS: Emergency Provider Emergency Medicine
DX: T83.091A Other mechanical complication of indwelling urethral catheter, initial encounter (principal); Y73.1 Therapeutic (nonsurgical) and rehabilitative gastroenterology and urology devices associated with adverse incidents
CPT/HCPCS: 99282